=== PATIENT | male | born 1965 | race Hispanic/Latino ===

== ENCOUNTER 2025-11-11 19:17 | Emergency (ER) | payer SELFPAY ==
[~2025-11-11] VITALS: Ht 167.6 cm; Wt 90.7 kg
--- NOTE | 2025-11-11 19:22 | NUR ---
PT CARE ASSUMED AT THIS TIME
--- NOTE | 2025-11-11 21:25 | HMCIMG ---
EXAM: CR right Hand, 3 View. CLINICAL HISTORY: partial amputation of right fifth finger COMPARISON: None provided. FINDINGS: BONES: Transverse distracted fracture which appears open involving the mid aspect of the fifth distal phalanx JOINTS: No evidence of dislocation. The joint spaces are normal. SOFT TISSUES: The soft tissues appear within normal limits. No radiopaque foreign body is seen. IMPRESSION: Transverse distracted fracture which appears open involving the mid aspect of the fifth distal phalanx /[place]
[2025-11-11] MEDS: LIDOCAINE HCL 1% 20 ML VIAL INJ ONE (22:15)
--- NOTE | 2025-11-11 22:48 | NUR ---
FINGER SPLINT PLACED ON 5TH FINGER TO RIGHT HAND ORDERED BY ED XIOMARA ESCOBAR.
--- NOTE | 2025-11-11 22:49 | NUR ---
FINGER NOTED TO HAVE 5 STITCHES PLACED BY ED XIOMARA ESCOBAR AT BEDSIDE. NO ACTIVE BLEEDING AT THIS TIME.
[2025-11-11] MEDS ORDERED: AMOX1TAB16 PO (22:57)
--- NOTE | 2025-11-11 22:57 | ERN ---
ED Note History of Present Illness Stated Complaint: RT 5TH FINGER INJURY Chief Complaint: Finger Injury Allergies: Coded Allergies: No Known Allergies (Unverified Allergy, Unknown, 11/11/25) Home Meds Active Scripts Amoxicillin/Potassium Clav (Amox Tr-K Clv 875-125 mg Tab) 875 Mg-125 Mg Tablet, 1 TAB PO BID for 10 Days, #20 TAB 0 Refills Prov:LUZ VENTURA [employer] 11/11/25 Past Medical History Past Medical History: No Pertinent History Surgical History: None Initial Vital Sign VS Vital Signs Date Time Temp Pulse Resp B/P (MAP) Pulse Ox O2 Delivery O2 Flow Rate FiO2 11/11/25 19:19 98.1 87 18 143/87 98 Room Air 11/11/25 19:48 0 21 ED Course ED Course Orders Procedure Category Date Status Time Hand 3+Vws Rt RAD 11/11/25 Resulted 19:29 Cefazolin Sodium 1 Gm PHA 11/11/25 In Process Vial (Ancef 1 Gm V 20:00 Tetanus,Diphtheria PHA 11/11/25 Complete Tox [Adult] (Diphther 20:00 Lidocaine Hcl 1% 20ml PHA 11/11/25 Complete Vial (Lidocaine Hc 21:30 Finger Splint BRENDA 11/11/25 In Process 22:16 Current Medications Medications (Trade) Dose Ordered Sig/Ronnell Route PRN Reason Start Time Stop Time Status Last Admin Dose Admin Cefazolin Sodium (ANCEF 1 gm vial) 1 gm ONCE IVPB 11/11/25 20:00 11/11/25 23:30 11/11/25 19:53 Lidocaine HCl (Lidocaine HCl 1% 20ml Vial) 20 ml ONCE ONCE INJ 11/11/25 21:30 11/11/25 21:31 DC 11/11/25 22:15 Tetanus/ Diphtheria Toxoids Adsorbed (DiphthERIA-teTANUS TOXOID [ADULT]/ DECAVAC) 0.5 ml ONCE ONCE IM 11/11/25 20:00 11/11/25 20:01 DC 11/11/25 20:01 Vital Signs Date Time Temp Pulse Resp B/P (MAP) Pulse Ox O2 Delivery O2 Flow Rate FiO2 11/11/25 22:47 87 16 145/83 100 Room Air* 0 21 11/11/25 21:30 82 15 158/82 100 Room Air* 0 21 11/11/25 19:48 98.1 96 17 167/99 100 Room Air* 0 21 11/11/25 19:19 98.1 87 18 143/87 98 Room Air Procedure Procedure Dictation: Time and Date Performed: 11/11/25 INDICATION: 1030 Location: Right 5th digit Informed consent was obtained. Pre-procedure time out was obtained. Anesthetic: 1% lidocaine Manual prep of skin and wound was done with Betadine and saline Foreign Body: NO foreign bodies were identified. Length Repaired: 2.5 cm Suture used: 3,2 Ethilon # of simple sutures: Four sutures using 3-0 Ethilon, one suture using 2-0 Ethilon Aseptic technique was used during the entire procedure. 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 Please take your antibiotics as prescribed. If anything worsens please return to ER. Keep your stitches clean and dry. Do not put your stitches under water, such as in a bath, pool, or barron. This can slow healing and raise your chance of getting an infection. Avoid activities or sports that could hurt the area of your stitches for 1-2 weeks. You should call your doctor if you develop any fever, redness or swelling around the cut, or pus draining from the cut. Your sutures will need to be removed in 10-14 days. FOLLOW-UP WITH PRIMARY CARE PROVIDER IN 1 TO 2 DAYS. TAKE MEDICATIONS DIRECTED HERE IN THE EMERGENCY ROOM. OKAY TO CONTINUE HOME MEDICATIONS UNLESS OTHERWISE DISCUSSED DURING YOUR VISIT IN THE EMERGENCY ROOM TODAY. RETURN TO YOUR NEAREST EMERGENCY ROOM IF SYMPTOMS WORSEN OR IF THERE IS NO IMPROVEMENT. CALL 911 IF YOU NEED IMMEDIATE ASSISTANCE. TAKE TYLENOL [id number] NEEDED AND IF NO CONTRAINDICATIONS ARE PRESENT. INCREASE ORAL HYDRATION. A WOUND CULTURE OR URINE CULTURE WAS ORDERED HERE IN THE EMERGENCY ROOM DEPARTMENT PLEASE FOLLOW-UP WITH PRIMARY CARE PROVIDER AND ADVISE THEM TO GET REPEAT PORTS FROM OUR FACILITY. IF YOU HAD ANY PHILLIP WRAP/SPLINTS THAT WERE APPLIED HERE, PLEASE DO NOT REMOVE THEM UNTIL YOU SEE YOUR PRIMARY CARE OR SPECIALTY. Referrals: RENU JUAREZ M.D. Time of Disposition: 22:56 I have examined patient, & reviewed all documents, & agreed W/ the Diagnosis, and Plan LUZ VENTURA [facility] Nov 11, 2025 22:57
[2025-11-11 23:32] VITALS: BP 138/78; PULSE 75; RESP 16; TEMP 98.1; O2SAT 99
== END 2025-11-11 23:51 | disposition home or self-care (01) ==
LOC: EDH 19:17
DX: S68.126A Partial traumatic metacarpophalangeal amputation of right little finger, initial encounter (principal); W23.1XXA Caught, crushed, jammed, or pinched between stationary objects, initial encounter; Y93.89 Activity, other specified; Y92.89 Other specified places as the place of occurrence of the external cause; Y99.8 Other external cause status
CPT/HCPCS: 99285; 96365; 96366; 90714; 73130; 90471; 12001; J0690; J2003